=== PATIENT | male | born 1960 | race Caucasian/White ===

== ENCOUNTER 2020-07-15 18:11 | Emergency (ER) | payer OTHER ==
[~2020-07-15] VITALS: Ht 177.8 cm; Wt 99.8 kg
[~2020-07-15 18:11] MED LIST: CYCL10 PO; OXYACE5T PO; TRAM50 PO
[2020-07-15 18:31] LABS: BASOPHILS ABSOLUTE AUTO 0.11 K/mm3 (0.00-0.23); BASOPHILS PERCENT AUTO 1 % (0-2); EOSINOPHILS ABSOLUTE AUTO 0.46 K/mm3 (0.00-0.68); EOSINOPHILS PERCENT AUTO 3 % (0-6); Hematocrit 47.7 % (37.0-53.0); IMMATURE GRAN PERCENT AUTO 1 % (0-1); LYMPHOCYTES ABSOLUTE AUTO 5.11 K/mm3 (0.84-5.20); LYMPHOCYTES PERCENT AUTO 31 % (21-46); MONOCYTES ABSOLUTE AUTO 0.87 K/mm3 (0.16-1.47); MONOCYTES PERCENT AUTO 5 % (4-13); Mean Corpuscular HGB 30.3 pg (26.0-34.0); Mean Corpuscular HGB Conc 33.5 g/dL (31.5-36.5); Mean Corpuscular Volume 90 fL (80-100); Mean Platelet Volume 9.4 fL (9.1-12.4); NEUTROPHILS ABSOLUTE AUTO 10.03 K/mm3 (1.96-9.15); NEUTROPHILS PERCENT AUTO 60 % (41-73); Platelet Count 292 K/mm3 (150-400); RDW Coefficient Variation 12.1 % (11.7-14.2); RDW Standard Deviation 40.2 fL (35.1-46.3); Red Blood Cell Count 5.28 M/mm3 (4.30-5.90); White Blood Cell Count 16.78 K/mm3 (4.00-11.30)
[2020-07-15 19:02] LABS: Source, Urine Voided
[2020-07-15 19:09] LABS: Alanine Aminotransfer (ALT/SGP 42 U/L (12-78); Albumin, Blood 3.7 g/dL (3.4-5.0); Albumin/Globulin Ratio 1.2 (0.8-1.8); Alk Phos 65 U/L (50-136); Anion Gap 9 mmol/L (6-16); Aspartate Aminotrans (AST/SGOT 38 U/L (12-37); Bilirubin, Total 0.7 mg/dL (0.1-1.0); Blood Urea Nitrogen 14 mg/dL (8-24); Bun/Creatinine Ratio 13.5 (12.0-20.0); CO2, Blood 24 mmol/L (21-32); Calcium, Blood 8.6 mg/dL (8.5-10.1); Chloride, Blood 105 mmol/L (98-108); Creatinine, Blood 1.04 mg/dL (0.60-1.20); Ethanol (Alcohol), Blood, Med 69 mg/dL; Globulin, Blood 3.1 g/dL (2.2-4.0); Glomerular Filtration Rate >60 (60-); Glucose, Blood 99 mg/dL (70-99); Potassium, Blood 3.4 mmol/L (3.5-5.5); Sodium, Blood 138 mmol/L (136-145); Total Protein, Blood 6.8 g/dL (6.4-8.2)
[2020-07-15 19:11] LABS: Bilirubin, Urine Neg (Neg); Blood, Urine 3+ (Neg); Glucose Qualitative, Urine Neg (Neg); Ketones, Urine Neg (Neg); Leukocyte Esterase, Urine Neg (Neg); Nitrite, Urine Neg (Neg); Protein, Urine Neg (Neg); Urobilinogen, Urine NORM (Normal)
[2020-07-15 19:23] LABS: Appearance, Urine Clear (Clear); Color, Urine Yellow (P-Yellow)
[2020-07-15 19:24] LABS: Amorphous Mod (0-Heavy); White Blood Cells, Urine Not Seen /hpf (0-5)
[2020-07-15 19:25] LABS: Bacteria Few /hpf; Squamous Epithelial Cells Not Seen /hpf (Few)
== END 2020-07-15 19:50 | disposition short-term general hospital (02) ==
LOC: ER 18:11
PROVIDERS: Emergency Medicine
DX: S12.000A Unspecified displaced fracture of first cervical vertebra, initial encounter for closed fracture (principal); S12.100A Unspecified displaced fracture of second cervical vertebra, initial encounter for closed fracture; S12.500A Unspecified displaced fracture of sixth cervical vertebra, initial encounter for closed fracture; S22.20XA Unspecified fracture of sternum, initial encounter for closed fracture; I10 Essential (primary) hypertension; W17.89XA Other fall from one level to another, initial encounter
CPT/HCPCS: 36415; 51702; 70450; 71045; 71260; 72125; 74177; 80053; 81001; 83690; 85025; 93005; 93010; 96374-59; 96375-59; 99285-25; G0480; J2270; J2405; J7030; L0160; Q9967

== ENCOUNTER → 2020-09-07 | Outpatient (CLI) | payer OTHER | LOC: LAB SHORT 08:04 | DX: D48.5 Neoplasm of uncertain behavior of skin (principal); D04.39 Carcinoma in situ of skin of other parts of face | CPT/HCPCS: 88305 ==

== ENCOUNTER 2023-02-03 06:50 | Day surgery (SDC) | payer OTHER ==
[~2023-02-03] VITALS: Ht 175.3 cm; Wt 108.2 kg
--- NOTE | 2023-02-03 07:12 | NUR ---
02/03/23 0712 OSITO FARNSWORTH CHARTED BY CARYN RAPP AND SIGNED IN BY TCR
[2023-02-03] MEDS ORDERED: NEBI5 (07:13)
[2023-02-03] MEDS ORDERED: K-Dur20 MEQ (07:13)
[2023-02-03] MEDS ORDERED: FURO20 (07:13)
[2023-02-03] MEDS ORDERED: KATERZIA1 MG/1 ML (07:13)
[2023-02-03] MEDS ORDERED: NAPR220 (07:14)
[2023-02-03] MEDS ORDERED: CLARITIN5 MG/5 M2 (07:14)
[2023-02-03 08:52] VITALS: BP 106/70
== END 2023-02-03 08:52 | disposition home or self-care (01) ==
LOC: ORSCSDS 06:50
PROVIDERS: Surgery
PROC: 0DBK8ZX Excision of Ascending Colon, Via Natural or Artificial Opening Endoscopic, Diagnostic (ICD-10-PCS; principal; 2023-02-03 08:00)
DX: Z12.11 Encounter for screening for malignant neoplasm of colon (principal); D12.2 Benign neoplasm of ascending colon; I71.40 Abdominal aortic aneurysm, without rupture, unspecified; I10 Essential (primary) hypertension; E66.9 Obesity, unspecified; Z68.35 Body mass index [BMI] 35.0-35.9, adult; F17.210 Nicotine dependence, cigarettes, uncomplicated; G47.33 Obstructive sleep apnea (adult) (pediatric); E78.5 Hyperlipidemia, unspecified; Z79.899 Other long term (current) drug therapy
CPT/HCPCS: 88305; J7120